=== PATIENT | male | born 1970 | race African-American/Black ===

== ENCOUNTER 2023-03-04 18:08 | Emergency (ER) | payer OTHER ==
[~2023-03-04] VITALS: Ht 182.9 cm; Wt 113.0 kg
[~2023-03-04 18:08] MED LIST: AMLO-257 PO; ASPI-556 PO; CHOL200016 PO; DIVA500T53 PO; LISI-894 PO; MAGN400T7 PO; OLAN10TA74 PO; SIMV-260 PO
[2023-03-04 19:44] VITALS: TEMP 98.1
[2023-03-04] MEDS ORDERED: CEPH-558 PO (20:27)
[2023-03-04 20:50] LABS: BASOPHILS % (AUTO) 0.3 % (0.0-2.0); HEMOGLOBIN 10.8 g/dL (13.5-17.5); LYMPHOCYTES % (AUTO) 25.4 % (22.0-44.0); MEAN CORPUSCULAR HEMOGLOBIN 29.7 pg (26.0-34.0); MEAN CORPUSCULAR HGB CONC 32.8 G/dL (31.0-37.0); MEAN CORPUSCULAR VOLUME 91 fL (80-100); MONOCYTES # (AUTO) 0.4 K/uL (0.1-1.0); MONOCYTES % (AUTO) 5.5 % (2.0-9.0); NEUTROPHILS # (AUTO) 5.4 K/uL (1.8-7.7); NEUTROPHILS % (AUTO) 66.8 % (40.0-70.0); PLATELET COUNT (AUTO) 262 K/uL (150-450); RED BLOOD CELL COUNT(AUTO) 3.65 MIL/uL (4.50-5.90); RED CELL DISTRIBUTION WIDTH 13.6 % (11.5-14.5)
[2023-03-04 20:57] LABS: ANION GAP 5 mmol/L (8-16); CALCIUM, TOTAL 8.3 mg/dL (8.8-10.5); CARBON DIOXIDE 28 mmol/L (22-29); CHLORIDE 106 mmol/L (98-107); CREATININE 1.59 mg/dL (0.60-1.30); GLOMERULAR FILTR. RATE CALC 55 mL/min (>60); GLUCOSE,RANDOM 305 mg/dL (70-110); POTASSIUM 4.5 mmol/L (3.5-5.1); SODIUM SERUM 139 mmol/L (136-145)
[2023-03-04 21:02] LABS: ALANINE AMINOTRANSFERASE 21 U/L (12-78); ALBUMIN 1.9 g/dL (3.4-5.0); ALKALINE PHOSPHATASE 189 U/L (46-116); ASPARTATE AMINOTRANSFERASE 19 U/L (15-37); BILIRUBIN,TOTAL 0.1 mg/dL (0.1-1.0); TOTAL PROTEIN, SERUM 5.5 g/dL (6.4-8.2)
[2023-03-04 21:05] LABS: AMPHET/METH SCREEN,URINE NEGATIVE (NEGATIVE); BARBITURATE SCREEN, URINE NEGATIVE (NEGATIVE); BENZODIAZEPINES SCREEN,URINE NEGATIVE (NEGATIVE); CANNABINOID SCREEN,URINE POSITIVE (NEGATIVE); COCAINE SCREEN,URINE NEGATIVE (NEGATIVE); METHADONE SCREEN, URINE NEGATIVE (NEGATIVE); OPIATE SCREEN,URINE NEGATIVE (NEGATIVE); PHENCYCLIDINE SCREEN,URINE NEGATIVE (NEGATIVE)
[2023-03-04 22:13] VITALS: BP 125/69; PULSE 98; RESP 18
[2023-03-05] MEDS ORDERED: PALI819S IM (13:30)
[2023-03-05] MEDS ORDERED: HYDR12.54 PO (13:30)
[2023-03-05] MEDS ORDERED: ATOR10TA69 PO (13:30)
[2023-03-05] MEDS ORDERED: AMLO2.5T29 PO (13:30)
== END 2023-03-04 22:15 | disposition short-term general hospital (02) ==
LOC: EMS 18:50
DX: S81.809A Unspecified open wound, unspecified lower leg, initial encounter (principal); F20.9 Schizophrenia, unspecified; I87.8 Other specified disorders of veins; L30.9 Dermatitis, unspecified; Z88.8 Allergy status to other drugs, medicaments and biological substances; X58.XXXA Exposure to other specified factors, initial encounter; Y93.89 Activity, other specified; Y92.89 Other specified places as the place of occurrence of the external cause; Y99.8 Other external cause status
CPT/HCPCS: 99285; 80053; 85025; 36415; 80307 ×2; G0480

== ENCOUNTER 2023-03-14 12:33 | Inpatient (IN) | payer OTHER ==
[~2023-03-14] VITALS: Ht 182.9 cm; Wt 122.8 kg
[~2023-03-14 12:33] MED LIST changes: -AMLO-257 PO; +AMLO2.5T29 PO; -ASPI-556 PO; +ATOR10TA69 PO; +CEPH-558 PO; -CHOL200016 PO; -DIVA500T53 PO; +HYDR12.54 PO; -LISI-894 PO; -MAGN400T7 PO; -OLAN10TA74 PO; +PALI819S IM; -SIMV-260 PO
[2023-03-14 15:15] LABS: BASOPHILS % (AUTO) 0.8 % (0.0-2.0); EOSINOPHILS % (AUTO) 2.9 % (1.0-6.0); HEMATOCRIT 31.8 % (41-53); HEMOGLOBIN 10.2 g/dL (13.5-17.5); LYMPHOCYTES # (AUTO) 0.9 K/uL (1.0-4.8); LYMPHOCYTES % (AUTO) 19.2 % (22.0-44.0); MEAN CORPUSCULAR HEMOGLOBIN 27.5 pg (26.0-34.0); MEAN CORPUSCULAR VOLUME 86 fL (80-100); MONOCYTES # (AUTO) 0.4 K/uL (0.1-1.0); MONOCYTES % (AUTO) 7.9 % (2.0-9.0); NEUTROPHILS # (AUTO) 3.2 K/uL (1.8-7.7); NEUTROPHILS % (AUTO) 69.2 % (40.0-70.0); PLATELET COUNT (AUTO) 365 K/uL (150-450); RED BLOOD CELL COUNT(AUTO) 3.71 MIL/uL (4.50-5.90); RED CELL DISTRIBUTION WIDTH 15.1 % (11.5-14.5)
[2023-03-14 15:27] LABS: ANION GAP 9 mmol/L (8-16); CALCIUM, TOTAL 9.1 mg/dL (8.8-10.5); CARBON DIOXIDE 29 mmol/L (22-29); CHLORIDE 100 mmol/L (98-107); CREATININE 0.61 mg/dL (0.60-1.30); GLOMERULAR FILTR. RATE CALC > 60 mL/min (>60); GLUCOSE,RANDOM 88 mg/dL (70-110); POTASSIUM 3.5 mmol/L (3.5-5.1); SODIUM SERUM 138 mmol/L (136-145)
[2023-03-14 15:32] LABS: ALANINE AMINOTRANSFERASE 14 U/L (12-78); ALBUMIN 3.1 g/dL (3.4-5.0); ALKALINE PHOSPHATASE 80 U/L (46-116); ASPARTATE AMINOTRANSFERASE 21 U/L (15-37); BILIRUBIN,TOTAL 0.5 mg/dL (0.1-1.0); TOTAL PROTEIN, SERUM 7.8 g/dL (6.4-8.2)
[2023-03-14 16:04] LABS: COVID AG,FIA SOURCE NASOPHARYNGEAL
[2023-03-14 18:28] LABS: APPEARANCE,URINE CLEAR (CLEAR); BILIRUBIN,URINE NEGATIVE (NEGATIVE); GLUCOSE, URINE (UA) NEGATIVE (NEGATIVE); KETONES,URINE NEGATIVE (NEGATIVE); LEUKOCYTE ESTERASE ,URINE NEGATIVE (NEGATIVE); NITRATE,URINE NEGATIVE (NEGATIVE); OCCULT BLOOD,URINE NEGATIVE (NEGATIVE); PH,URINE 5.5 (5.0-8.0); PROTEIN,URINE NEGATIVE (NEGATIVE); SPECIFIC GRAVITIY, URINE 1.009 (1.003-1.030); UROBILINOGEN,URINE <=1.0 mg/dL (<=1.0)
[2023-03-14 18:35] LABS: AMPHET/METH SCREEN,URINE NEGATIVE (NEGATIVE); BARBITURATE SCREEN, URINE NEGATIVE (NEGATIVE); BENZODIAZEPINES SCREEN,URINE NEGATIVE (NEGATIVE); CANNABINOID SCREEN,URINE NEGATIVE (NEGATIVE); COCAINE SCREEN,URINE NEGATIVE (NEGATIVE); METHADONE SCREEN, URINE NEGATIVE (NEGATIVE); OPIATE SCREEN,URINE NEGATIVE (NEGATIVE); PHENCYCLIDINE SCREEN,URINE NEGATIVE (NEGATIVE)
[2023-03-15 02:31] VITALS: BP 128/73; PULSE 78; RESP 20; TEMP 98.3; O2SAT 97
[2023-03-15 02:55] VITALS: BP 128/73; PULSE 78; RESP 20; TEMP 98.3
[2023-03-15] MEDS ORDERED: PETROLATUM,WHITE 28 GM JELLY TP PRN (07:00)
[2023-03-15] MEDS ORDERED: ONDANSETRON HCL 4 MG TABLET PO PRN (07:00)
[2023-03-15] MEDS ORDERED: MAG HYDROX/AL HYDROX/SIMETH ES 30 ML SUSPENSION UDCUP PO PRN (07:00)
[2023-03-15] MEDS ORDERED: CloNIDine HCL 0.1 MG TABLET PO PRN (07:00)
[2023-03-15] MEDS ORDERED: ALBUTEROL SULFATE HFA 90 MCG/PUFF 8 GM INHALER IH PRN (07:00)
[2023-03-15] MEDS ORDERED: GuaiFENesin/D-METHORPHAN [SUGAR-FREE] 200-20MG/10 ML SYRUP UDCUP PO PRN (07:00)
[2023-03-15] MEDS ORDERED: DOCUSATE SODIUM 100 MG CAPSULE PO PRN (07:00)
[2023-03-15] MEDS ORDERED: IBUPROFEN 400 MG TABLET PO PRN ×2 (07:00→23:15)
[2023-03-15] MEDS ORDERED: ACETAMINOPHEN 325 MG TABLET PO PRN (07:00)
[2023-03-15] MEDS ORDERED: LOPERAMIDE HCL 2 MG CAPSULE PO PRN (07:00)
[2023-03-15] MEDS ORDERED: MAGNESIUM HYDROXIDE SUSPENSION 30 ML UDCUP PO PRN (07:00)
[2023-03-15 07:18] VITALS: BP 128/97; PULSE 78; RESP 18; TEMP 98.3
[2023-03-15] MEDS: AmLODIPine BESYLATE 2.5 MG TABLET PO SCH (07:18)
[2023-03-15] MEDS: HALOPERIDOL 5 MG TABLET PO PRN ×2 (07:18→14:56)
[2023-03-15] MEDS: LORazepam 2 MG TABLET PO PRN ×2 (07:18→14:56)
[2023-03-15] MEDS: HYDROCHLOROTHIAZIDE 25 MG TABLET PO SCH (07:19)
[2023-03-15] MEDS: ATORVASTATIN CALCIUM 10 MG TABLET PO SCH (08:05)
[2023-03-15 08:18] VITALS: BP 132/89; PULSE 76; RESP 18; TEMP 98.2
[2023-03-15 08:22] VITALS: BP 116/70; PULSE 84; RESP 20; TEMP 98.9; O2SAT 100
[2023-03-15] MEDS: CIPROFLOXACIN HCL 0.3% 2.5 ML OPHTHALMIC SOLUTION OU SCH ×3 (08:23→18:44)
[2023-03-15] MEDS: OLANZapine 10 MG TABLET PO SCH (18:44)
[2023-03-15 20:31] VITALS: RESP 18
[2023-03-15] MEDS: DIVALPROEX SODIUM 500 MG ER TABLET PO SCH (21:04)
[2023-03-16] MEDS: OLANZapine 10 MG TABLET PO SCH ×2 (08:44→17:34)
[2023-03-16] MEDS: AmLODIPine BESYLATE 2.5 MG TABLET PO SCH (08:44)
[2023-03-16] MEDS: DIVALPROEX SODIUM 500 MG ER TABLET PO SCH ×2 (08:45→20:34)
[2023-03-16] MEDS: HYDROCHLOROTHIAZIDE 25 MG TABLET PO SCH (08:45)
[2023-03-16] MEDS: CIPROFLOXACIN HCL 0.3% 2.5 ML OPHTHALMIC SOLUTION OU SCH ×3 (08:46→17:33)
[2023-03-16] MEDS: ATORVASTATIN CALCIUM 10 MG TABLET PO SCH (08:46)
[2023-03-16 09:09] VITALS: BP 138/81; PULSE 88; RESP 18; TEMP 98.1; O2SAT 98
[2023-03-16 12:20] LABS: HEMOGLOBIN A1C 5.9 % (3.8-5.6)
[2023-03-16 12:26] LABS: THYROID STIMULATING HORMONE 1.13 uIU/mL (0.36-3.74)
[2023-03-16] MEDS: LORazepam 2 MG TABLET PO PRN (14:05)
[2023-03-16 20:47] VITALS: PULSE 95; RESP 18; TEMP 98.1; O2SAT 97
[2023-03-17] MEDS: OLANZapine 10 MG TABLET PO SCH ×2 (08:23→17:19)
[2023-03-17] MEDS: HYDROCHLOROTHIAZIDE 25 MG TABLET PO SCH (08:24)
[2023-03-17] MEDS: AmLODIPine BESYLATE 2.5 MG TABLET PO SCH (08:24)
[2023-03-17] MEDS: DIVALPROEX SODIUM 500 MG ER TABLET PO SCH ×2 (08:24→20:33)
[2023-03-17] MEDS: ATORVASTATIN CALCIUM 10 MG TABLET PO SCH (08:25)
[2023-03-17] MEDS: CIPROFLOXACIN HCL 0.3% 2.5 ML OPHTHALMIC SOLUTION OU SCH ×3 (08:25→17:21)
[2023-03-17 10:26] VITALS: BP 110/82; PULSE 81; RESP 17; TEMP 98; O2SAT 98
[2023-03-17 20:06] VITALS: BP 128/77; PULSE 86; RESP 18; TEMP 98.1; O2SAT 97
[2023-03-17] MEDS: ZOLPIDEM TARTRATE 10 MG TABLET PO PRN (23:14)
[2023-03-18] MEDS: LORazepam 2 MG TABLET PO PRN ×4 (02:41→22:33)
[2023-03-18] MEDS: HALOPERIDOL 5 MG TABLET PO PRN ×4 (02:41→22:33)
[2023-03-18 08:00] VITALS: BP 137/87; PULSE 87; RESP 18; TEMP 98
[2023-03-18 08:37] LABS: CHOL/HDL RATIO 2.5 (4.2-7.3)
[2023-03-18] MEDS: ATORVASTATIN CALCIUM 10 MG TABLET PO SCH (10:22)
[2023-03-18] MEDS: OLANZapine 10 MG TABLET PO SCH ×2 (10:22→16:27)
[2023-03-18] MEDS: AmLODIPine BESYLATE 2.5 MG TABLET PO SCH (10:22)
[2023-03-18] MEDS: DIVALPROEX SODIUM 500 MG ER TABLET PO SCH ×2 (10:22→20:41)
[2023-03-18] MEDS: HYDROCHLOROTHIAZIDE 25 MG TABLET PO SCH (10:22)
[2023-03-18] MEDS: BACITRACIN 28 GM OINTMENT TP SCH ×2 (10:23→18:03)
[2023-03-18] MEDS: CIPROFLOXACIN HCL 0.3% 2.5 ML OPHTHALMIC SOLUTION OU SCH ×3 (10:23→16:27)
[2023-03-18 20:57] VITALS: BP 149/84; PULSE 88; RESP 18; TEMP 97.7; O2SAT 99
[2023-03-19] MEDS: CIPROFLOXACIN HCL 0.3% 2.5 ML OPHTHALMIC SOLUTION OU SCH ×3 (08:16→17:59)
[2023-03-19] MEDS: ATORVASTATIN CALCIUM 10 MG TABLET PO SCH (08:16)
[2023-03-19] MEDS: DIVALPROEX SODIUM 500 MG ER TABLET PO SCH ×2 (08:16→20:38)
[2023-03-19] MEDS: AmLODIPine BESYLATE 2.5 MG TABLET PO SCH (08:17)
[2023-03-19] MEDS: HYDROCHLOROTHIAZIDE 25 MG TABLET PO SCH (08:17)
[2023-03-19] MEDS: OLANZapine 10 MG TABLET PO SCH ×2 (08:17→20:37)
[2023-03-19] MEDS: BACITRACIN 28 GM OINTMENT TP SCH ×2 (08:17→17:59)
[2023-03-19] MEDS: HALOPERIDOL 5 MG TABLET PO PRN ×2 (08:18→21:22)
[2023-03-19] MEDS: LORazepam 2 MG TABLET PO PRN ×2 (08:18→21:22)
[2023-03-19 08:47] VITALS: BP 161/89; PULSE 101; RESP 18; TEMP 97.1; O2SAT 95
[2023-03-19 20:40] VITALS: BP 142/85; PULSE 95; RESP 20; TEMP 98; O2SAT 97
[2023-03-20 08:10] VITALS: BP 123/75; PULSE 95; RESP 18; TEMP 98.3; O2SAT 99
[2023-03-20] MEDS: AmLODIPine BESYLATE 2.5 MG TABLET PO SCH (08:12)
[2023-03-20] MEDS: OLANZapine 10 MG TABLET PO SCH ×2 (08:12→20:21)
[2023-03-20] MEDS: ATORVASTATIN CALCIUM 10 MG TABLET PO SCH (08:12)
[2023-03-20] MEDS: HYDROCHLOROTHIAZIDE 25 MG TABLET PO SCH (08:12)
[2023-03-20] MEDS: CIPROFLOXACIN HCL 0.3% 2.5 ML OPHTHALMIC SOLUTION OU SCH ×3 (08:14→16:51)
[2023-03-20] MEDS: DIVALPROEX SODIUM 500 MG ER TABLET PO SCH ×2 (08:14→20:22)
[2023-03-20] MEDS: BACITRACIN 28 GM OINTMENT TP SCH ×2 (08:17→16:51)
[2023-03-20] MEDS: HALOPERIDOL 5 MG TABLET PO PRN (19:07)
[2023-03-20] MEDS: LORazepam 2 MG TABLET PO PRN (19:07)
[2023-03-20 20:48] VITALS: BP 121/86; PULSE 112; RESP 18; TEMP 97.8; O2SAT 98
[2023-03-20] MEDS: ZOLPIDEM TARTRATE 10 MG TABLET PO PRN (22:39)
[2023-03-21] MEDS: DIVALPROEX SODIUM 500 MG ER TABLET PO SCH ×2 (08:07→20:16)
[2023-03-21] MEDS: HYDROCHLOROTHIAZIDE 25 MG TABLET PO SCH (08:08)
[2023-03-21] MEDS: AmLODIPine BESYLATE 2.5 MG TABLET PO SCH (08:08)
[2023-03-21] MEDS: OLANZapine 10 MG TABLET PO SCH ×2 (08:08→20:16)
[2023-03-21] MEDS: ATORVASTATIN CALCIUM 10 MG TABLET PO SCH (08:08)
[2023-03-21] MEDS: CIPROFLOXACIN HCL 0.3% 2.5 ML OPHTHALMIC SOLUTION OU SCH ×3 (08:08→17:08)
[2023-03-21 08:20] VITALS: BP 131/93; PULSE 104; RESP 18; TEMP 97.6; O2SAT 100
[2023-03-21] MEDS: BACITRACIN 28 GM OINTMENT TP SCH ×2 (12:28→17:10)
[2023-03-21] MEDS: HALOPERIDOL 5 MG TABLET PO PRN (19:10)
[2023-03-21] MEDS: LORazepam 2 MG TABLET PO PRN (19:10)
[2023-03-21 20:34] VITALS: BP 150/71; PULSE 87; RESP 18; TEMP 97.2; O2SAT 99
[2023-03-21] MEDS: ZOLPIDEM TARTRATE 10 MG TABLET PO PRN (23:21)
[2023-03-22 08:11] VITALS: BP 113/63; PULSE 98; RESP 18; TEMP 98; O2SAT 98
[2023-03-22] MEDS: OLANZapine 10 MG TABLET PO SCH ×2 (08:41→21:08)
[2023-03-22] MEDS: HYDROCHLOROTHIAZIDE 25 MG TABLET PO SCH (08:41)
[2023-03-22] MEDS: DIVALPROEX SODIUM 500 MG ER TABLET PO SCH ×2 (08:41→21:08)
[2023-03-22] MEDS: BACITRACIN 28 GM OINTMENT TP SCH ×2 (08:42→16:25)
[2023-03-22] MEDS: AmLODIPine BESYLATE 2.5 MG TABLET PO SCH (08:42)
[2023-03-22] MEDS: ATORVASTATIN CALCIUM 10 MG TABLET PO SCH (08:42)
[2023-03-22] MEDS: CIPROFLOXACIN HCL 0.3% 2.5 ML OPHTHALMIC SOLUTION OU SCH ×3 (08:43→16:25)
[2023-03-22 21:27] VITALS: BP 138/99; PULSE 96; RESP 18; TEMP 97.4; O2SAT 98
[2023-03-23] MEDS: ZOLPIDEM TARTRATE 10 MG TABLET PO PRN ×2 (00:59→21:11)
[2023-03-23 08:10] VITALS: BP 154/99; PULSE 103; RESP 16; TEMP 96.7; O2SAT 99
[2023-03-23] MEDS: OLANZapine 10 MG TABLET PO SCH ×2 (08:15→21:10)
[2023-03-23] MEDS: DIVALPROEX SODIUM 500 MG ER TABLET PO SCH ×2 (08:15→21:10)
[2023-03-23] MEDS: AmLODIPine BESYLATE 2.5 MG TABLET PO SCH (08:15)
[2023-03-23] MEDS: HYDROCHLOROTHIAZIDE 25 MG TABLET PO SCH (08:15)
[2023-03-23] MEDS: ATORVASTATIN CALCIUM 10 MG TABLET PO SCH (08:16)
[2023-03-23] MEDS: BACITRACIN 28 GM OINTMENT TP SCH ×2 (08:19→16:35)
[2023-03-23] MEDS: CIPROFLOXACIN HCL 0.3% 2.5 ML OPHTHALMIC SOLUTION OU SCH ×3 (08:19→16:35)
[2023-03-23] MEDS: LORazepam 2 MG TABLET PO PRN (19:45)
[2023-03-23 21:21] VITALS: BP 132/82; PULSE 96; RESP 18; TEMP 97.6; O2SAT 99
[2023-03-24] MEDS: AmLODIPine BESYLATE 2.5 MG TABLET PO SCH (07:57)
[2023-03-24] MEDS: DIVALPROEX SODIUM 500 MG ER TABLET PO SCH ×2 (07:57→21:14)
[2023-03-24] MEDS: HYDROCHLOROTHIAZIDE 25 MG TABLET PO SCH (07:57)
[2023-03-24] MEDS: ATORVASTATIN CALCIUM 10 MG TABLET PO SCH (07:57)
[2023-03-24] MEDS: OLANZapine 10 MG TABLET PO SCH ×2 (07:57→21:14)
[2023-03-24] MEDS: BACITRACIN 28 GM OINTMENT TP SCH ×2 (07:58→17:21)
[2023-03-24] MEDS: CIPROFLOXACIN HCL 0.3% 2.5 ML OPHTHALMIC SOLUTION OU SCH ×3 (07:58→17:21)
[2023-03-24 08:31] VITALS: BP 110/70; PULSE 98; RESP 17; TEMP 97.5; O2SAT 99
[2023-03-24] MEDS: LORazepam 2 MG TABLET PO PRN (19:30)
[2023-03-24 20:35] VITALS: BP 119/76; PULSE 101; RESP 18; TEMP 97.9; O2SAT 98
[2023-03-24] MEDS: ZOLPIDEM TARTRATE 10 MG TABLET PO PRN (21:14)
[2023-03-25] MEDS: AmLODIPine BESYLATE 2.5 MG TABLET PO SCH (07:55)
[2023-03-25] MEDS: ATORVASTATIN CALCIUM 10 MG TABLET PO SCH (07:55)
[2023-03-25] MEDS: OLANZapine 10 MG TABLET PO SCH ×2 (07:55→20:19)
[2023-03-25] MEDS: HYDROCHLOROTHIAZIDE 25 MG TABLET PO SCH (07:56)
[2023-03-25 08:12] VITALS: BP 124/73; PULSE 95; RESP 18; TEMP 97.4; O2SAT 100
[2023-03-25] MEDS: DIVALPROEX SODIUM 500 MG ER TABLET PO SCH ×2 (09:00→20:19)
[2023-03-25] MEDS: BACITRACIN 28 GM OINTMENT TP SCH ×2 (12:16→17:10)
[2023-03-25] MEDS: LORazepam 2 MG TABLET PO PRN ×2 (15:39→20:47)
[2023-03-25 20:38] VITALS: BP 127/75; PULSE 91; RESP 18; TEMP 97.7
[2023-03-25] MEDS: ZOLPIDEM TARTRATE 10 MG TABLET PO PRN (20:47)
[2023-03-26] MEDS: ATORVASTATIN CALCIUM 10 MG TABLET PO SCH (08:07)
[2023-03-26] MEDS: DIVALPROEX SODIUM 500 MG ER TABLET PO SCH ×2 (08:08→21:15)
[2023-03-26] MEDS: HYDROCHLOROTHIAZIDE 25 MG TABLET PO SCH (08:08)
[2023-03-26] MEDS: AmLODIPine BESYLATE 2.5 MG TABLET PO SCH (08:08)
[2023-03-26] MEDS: OLANZapine 10 MG TABLET PO SCH ×2 (08:09→21:15)
[2023-03-26 08:50] VITALS: BP 144/88; PULSE 101; RESP 18; TEMP 97.6; O2SAT 98
[2023-03-26] MEDS: BACITRACIN 28 GM OINTMENT TP SCH ×2 (09:10→16:10)
[2023-03-26] MEDS: NICOTINE 14 MG/24 HOUR PATCH TD PRN (12:34)
[2023-03-26] MEDS: HALOPERIDOL 5 MG TABLET PO PRN (19:45)
[2023-03-26] MEDS: LORazepam 2 MG TABLET PO PRN (19:45)
[2023-03-26] MEDS: ZOLPIDEM TARTRATE 10 MG TABLET PO PRN (21:15)
[2023-03-26 21:24] VITALS: BP 153/89; PULSE 101; RESP 18; TEMP 97.8; O2SAT 96
[2023-03-27] MEDS: BACITRACIN 28 GM OINTMENT TP SCH ×2 (08:08→16:11)
[2023-03-27] MEDS: ATORVASTATIN CALCIUM 10 MG TABLET PO SCH (08:08)
[2023-03-27] MEDS: AmLODIPine BESYLATE 2.5 MG TABLET PO SCH (08:09)
[2023-03-27] MEDS: OLANZapine 10 MG TABLET PO SCH ×2 (08:09→20:44)
[2023-03-27] MEDS: HYDROCHLOROTHIAZIDE 25 MG TABLET PO SCH (08:09)
[2023-03-27 08:11] VITALS: BP 136/78; PULSE 105; RESP 17; TEMP 98.2; O2SAT 97
[2023-03-27] MEDS: DIVALPROEX SODIUM 500 MG ER TABLET PO SCH ×2 (08:12→20:44)
[2023-03-27 20:54] VITALS: RESP 18
[2023-03-28 08:12] VITALS: BP 150/98; PULSE 109; RESP 17; TEMP 97.8; O2SAT 98
[2023-03-28] MEDS: OLANZapine 10 MG TABLET PO SCH ×2 (08:12→20:38)
[2023-03-28] MEDS: HYDROCHLOROTHIAZIDE 25 MG TABLET PO SCH (08:12)
[2023-03-28] MEDS: AmLODIPine BESYLATE 2.5 MG TABLET PO SCH (08:12)
[2023-03-28] MEDS: DIVALPROEX SODIUM 500 MG ER TABLET PO SCH ×2 (08:12→20:38)
[2023-03-28] MEDS: HALOPERIDOL 5 MG TABLET PO PRN (08:12)
[2023-03-28] MEDS: BACITRACIN 28 GM OINTMENT TP SCH ×2 (08:13→16:37)
[2023-03-28] MEDS: ATORVASTATIN CALCIUM 10 MG TABLET PO SCH (08:13)
[2023-03-28] MEDS: NICOTINE 14 MG/24 HOUR PATCH TD PRN (18:06)
[2023-03-28 20:32] VITALS: BP 108/60; PULSE 100; RESP 18; TEMP 98.2; O2SAT 97
[2023-03-29 08:06] VITALS: BP 120/73; PULSE 100; RESP 18; TEMP 98.5; O2SAT 98
[2023-03-29] MEDS: AmLODIPine BESYLATE 2.5 MG TABLET PO SCH (09:32)
[2023-03-29] MEDS: OLANZapine 10 MG TABLET PO SCH ×2 (09:32→20:52)
[2023-03-29] MEDS: DIVALPROEX SODIUM 500 MG ER TABLET PO SCH ×2 (09:32→20:51)
[2023-03-29] MEDS: ATORVASTATIN CALCIUM 10 MG TABLET PO SCH (09:32)
[2023-03-29] MEDS: HYDROCHLOROTHIAZIDE 25 MG TABLET PO SCH (09:32)
[2023-03-29] MEDS: BACITRACIN 28 GM OINTMENT TP SCH ×2 (09:33→16:48)
[2023-03-29] MEDS: HALOPERIDOL 5 MG TABLET PO PRN (10:15)
[2023-03-29] MEDS: LORazepam 2 MG TABLET PO PRN (10:15)
[2023-03-29 22:10] VITALS: RESP 18
[2023-03-30] MEDS: AmLODIPine BESYLATE 2.5 MG TABLET PO SCH (08:00)
[2023-03-30] MEDS: ATORVASTATIN CALCIUM 10 MG TABLET PO SCH (08:00)
[2023-03-30] MEDS: DIVALPROEX SODIUM 500 MG ER TABLET PO SCH ×2 (08:00→21:01)
[2023-03-30] MEDS: OLANZapine 10 MG TABLET PO SCH ×2 (08:01→21:01)
[2023-03-30] MEDS: HYDROCHLOROTHIAZIDE 25 MG TABLET PO SCH (08:01)
[2023-03-30] MEDS: BACITRACIN 28 GM OINTMENT TP SCH ×2 (08:04→17:03)
[2023-03-30] MEDS: LORazepam 2 MG TABLET PO PRN ×3 (08:27→23:17)
[2023-03-30] MEDS: HALOPERIDOL 5 MG TABLET PO PRN ×3 (08:27→23:17)
[2023-03-30 09:04] VITALS: BP 126/76; PULSE 77; RESP 18; TEMP 98.9; O2SAT 97
[2023-03-30 21:37] VITALS: BP 119/78; PULSE 88; RESP 18; TEMP 97.9; O2SAT 97
[2023-03-31] MEDS: AmLODIPine BESYLATE 2.5 MG TABLET PO SCH (08:08)
[2023-03-31] MEDS: ATORVASTATIN CALCIUM 10 MG TABLET PO SCH (08:08)
[2023-03-31] MEDS: OLANZapine 10 MG TABLET PO SCH ×2 (08:08→20:48)
[2023-03-31] MEDS: LORazepam 2 MG TABLET PO PRN (08:08)
[2023-03-31] MEDS: BACITRACIN 28 GM OINTMENT TP SCH ×2 (08:08→16:14)
[2023-03-31] MEDS: HYDROCHLOROTHIAZIDE 25 MG TABLET PO SCH (08:09)
[2023-03-31] MEDS: DIVALPROEX SODIUM 500 MG ER TABLET PO SCH ×2 (08:09→20:49)
[2023-03-31 08:57] VITALS: BP 144/86; PULSE 110; RESP 18; TEMP 97; O2SAT 96
[2023-03-31 22:00] VITALS: BP 135/78; PULSE 92; RESP 18; TEMP 97.8; O2SAT 97
[2023-04-01] MEDS: ATORVASTATIN CALCIUM 10 MG TABLET PO SCH (07:26)
[2023-04-01] MEDS: DIVALPROEX SODIUM 500 MG ER TABLET PO SCH ×2 (07:28→20:44)
[2023-04-01] MEDS: BACITRACIN 28 GM OINTMENT TP SCH ×2 (07:28→17:59)
[2023-04-01] MEDS: HYDROCHLOROTHIAZIDE 25 MG TABLET PO SCH (07:28)
[2023-04-01] MEDS: OLANZapine 10 MG TABLET PO SCH ×2 (07:28→20:44)
[2023-04-01] MEDS: AmLODIPine BESYLATE 2.5 MG TABLET PO SCH (07:28)
[2023-04-01 08:56] VITALS: BP 158/104; PULSE 92; RESP 19; TEMP 97.2; O2SAT 92
[2023-04-01] MEDS: NICOTINE 14 MG/24 HOUR PATCH TD PRN (16:31)
[2023-04-01] MEDS: HALOPERIDOL 5 MG TABLET PO PRN (17:58)
[2023-04-01 22:24] VITALS: BP 138/82; PULSE 104; RESP 20; TEMP 97.7; O2SAT 98
[2023-04-02] MEDS: DIVALPROEX SODIUM 500 MG ER TABLET PO SCH ×2 (08:06→20:35)
[2023-04-02] MEDS: OLANZapine 10 MG TABLET PO SCH ×2 (08:06→20:35)
[2023-04-02] MEDS: ATORVASTATIN CALCIUM 10 MG TABLET PO SCH (08:06)
[2023-04-02] MEDS: BACITRACIN 28 GM OINTMENT TP SCH ×2 (08:06→16:52)
[2023-04-02] MEDS: AmLODIPine BESYLATE 2.5 MG TABLET PO SCH (08:06)
[2023-04-02] MEDS: HYDROCHLOROTHIAZIDE 25 MG TABLET PO SCH (08:07)
[2023-04-02 08:30] VITALS: BP 110/74; PULSE 99; RESP 18; TEMP 98.1; O2SAT 98
[2023-04-02] MEDS: NICOTINE 14 MG/24 HOUR PATCH TD PRN (09:10)
[2023-04-02 22:02] VITALS: RESP 18
[2023-04-03] MEDS: ATORVASTATIN CALCIUM 10 MG TABLET PO SCH (07:30)
[2023-04-03] MEDS: AmLODIPine BESYLATE 2.5 MG TABLET PO SCH (07:30)
[2023-04-03] MEDS: HYDROCHLOROTHIAZIDE 25 MG TABLET PO SCH (07:30)
[2023-04-03] MEDS: DIVALPROEX SODIUM 500 MG ER TABLET PO SCH ×2 (07:30→20:37)
[2023-04-03] MEDS: OLANZapine 10 MG TABLET PO SCH ×2 (07:30→20:37)
[2023-04-03] MEDS: BACITRACIN 28 GM OINTMENT TP SCH ×2 (07:31→17:56)
[2023-04-03 08:12] VITALS: BP 125/86; PULSE 91; RESP 18; TEMP 97.7; O2SAT 96
[2023-04-03] MEDS: NICOTINE 14 MG/24 HOUR PATCH TD PRN (08:19)
[2023-04-03 21:59] VITALS: BP 145/80; PULSE 96; RESP 18; TEMP 97.2; O2SAT 97
[2023-04-04] MEDS: HYDROCHLOROTHIAZIDE 25 MG TABLET PO SCH (08:01)
[2023-04-04] MEDS: DIVALPROEX SODIUM 500 MG ER TABLET PO SCH ×2 (08:01→20:15)
[2023-04-04] MEDS: ATORVASTATIN CALCIUM 10 MG TABLET PO SCH (08:01)
[2023-04-04] MEDS: AmLODIPine BESYLATE 2.5 MG TABLET PO SCH (08:01)
[2023-04-04] MEDS: BACITRACIN 28 GM OINTMENT TP SCH ×2 (08:01→17:15)
[2023-04-04] MEDS: OLANZapine 10 MG TABLET PO SCH ×2 (08:02→20:15)
[2023-04-04 08:07] VITALS: BP 126/86; PULSE 94; RESP 18; TEMP 97.8; O2SAT 97
[2023-04-04] MEDS ORDERED: LORazepam 1 MG TABLET PO PRN (16:30)
[2023-04-04 20:45] VITALS: BP 149/97; PULSE 96; RESP 19; TEMP 97.6; O2SAT 96
[2023-04-05] MEDS: OLANZapine 10 MG TABLET PO SCH ×2 (07:57→20:17)
[2023-04-05] MEDS: AmLODIPine BESYLATE 2.5 MG TABLET PO SCH (07:58)
[2023-04-05] MEDS: DIVALPROEX SODIUM 500 MG ER TABLET PO SCH ×2 (07:58→20:18)
[2023-04-05] MEDS: HYDROCHLOROTHIAZIDE 25 MG TABLET PO SCH (07:58)
[2023-04-05] MEDS: ATORVASTATIN CALCIUM 10 MG TABLET PO SCH (07:59)
[2023-04-05 08:14] VITALS: BP 113/78; PULSE 90; RESP 18; TEMP 97.6; O2SAT 95
[2023-04-05] MEDS: BACITRACIN 28 GM OINTMENT TP SCH ×2 (11:52→16:45)
[2023-04-05 20:52] VITALS: BP 130/85; PULSE 85; RESP 18; TEMP 97.8; O2SAT 96
[2023-04-06] MEDS: DIVALPROEX SODIUM 500 MG ER TABLET PO SCH ×2 (08:01→20:34)
[2023-04-06] MEDS: OLANZapine 10 MG TABLET PO SCH ×2 (08:01→20:34)
[2023-04-06] MEDS: AmLODIPine BESYLATE 2.5 MG TABLET PO SCH (08:01)
[2023-04-06] MEDS: BACITRACIN 28 GM OINTMENT TP SCH ×2 (08:02→17:25)
[2023-04-06] MEDS: HYDROCHLOROTHIAZIDE 25 MG TABLET PO SCH (08:02)
[2023-04-06] MEDS: ATORVASTATIN CALCIUM 10 MG TABLET PO SCH (08:02)
[2023-04-06] MEDS: NICOTINE 14 MG/24 HOUR PATCH TD PRN (08:10)
[2023-04-06 09:00] VITALS: BP 149/94; PULSE 103; RESP 18; TEMP 97.5
[2023-04-06 20:46] VITALS: BP 150/90; PULSE 97; RESP 18; TEMP 97.8; O2SAT 97
[2023-04-07] MEDS: HYDROCHLOROTHIAZIDE 25 MG TABLET PO SCH (08:16)
[2023-04-07] MEDS: ATORVASTATIN CALCIUM 10 MG TABLET PO SCH (08:16)
[2023-04-07] MEDS: AmLODIPine BESYLATE 2.5 MG TABLET PO SCH (08:16)
[2023-04-07] MEDS: MULTIVITAMINS, THERAPEUTIC TABLET PO SCH (08:16)
[2023-04-07] MEDS: DIVALPROEX SODIUM 500 MG ER TABLET PO SCH ×2 (08:16→21:18)
[2023-04-07] MEDS: OLANZapine 10 MG TABLET PO SCH ×2 (08:22→21:18)
[2023-04-07] MEDS: BACITRACIN 28 GM OINTMENT TP SCH ×2 (08:23→16:59)
[2023-04-07] MEDS: NICOTINE 14 MG/24 HOUR PATCH TD PRN (08:33)
[2023-04-07 08:49] VITALS: BP 133/77; PULSE 91; RESP 19; TEMP 97.2; O2SAT 98
[2023-04-07 21:20] VITALS: BP 145/80; PULSE 95; RESP 20; TEMP 97.8; O2SAT 97
[2023-04-08 08:08] VITALS: BP 141/81; PULSE 91; RESP 16; TEMP 97.2; O2SAT 95
[2023-04-08] MEDS: MULTIVITAMINS, THERAPEUTIC TABLET PO SCH (08:15)
[2023-04-08] MEDS: DIVALPROEX SODIUM 500 MG ER TABLET PO SCH ×2 (08:15→20:21)
[2023-04-08] MEDS: ATORVASTATIN CALCIUM 10 MG TABLET PO SCH (08:17)
[2023-04-08] MEDS: OLANZapine 10 MG TABLET PO SCH ×2 (08:17→20:21)
[2023-04-08] MEDS: HYDROCHLOROTHIAZIDE 25 MG TABLET PO SCH (08:17)
[2023-04-08] MEDS: AmLODIPine BESYLATE 2.5 MG TABLET PO SCH (08:17)
[2023-04-08] MEDS: BACITRACIN 28 GM OINTMENT TP SCH ×2 (08:18→17:10)
[2023-04-08] MEDS: NICOTINE 14 MG/24 HOUR PATCH TD PRN (08:24)
[2023-04-08 20:04] VITALS: BP 112/73; PULSE 99; RESP 18; TEMP 97.3; O2SAT 97
[2023-04-09] MEDS: OLANZapine 10 MG TABLET PO SCH ×2 (08:34→20:15)
[2023-04-09] MEDS: AmLODIPine BESYLATE 2.5 MG TABLET PO SCH (08:35)
[2023-04-09] MEDS: DIVALPROEX SODIUM 500 MG ER TABLET PO SCH ×2 (08:35→20:15)
[2023-04-09] MEDS: MULTIVITAMINS, THERAPEUTIC TABLET PO SCH (08:35)
[2023-04-09] MEDS: ATORVASTATIN CALCIUM 10 MG TABLET PO SCH (08:35)
[2023-04-09] MEDS: HYDROCHLOROTHIAZIDE 25 MG TABLET PO SCH (08:35)
[2023-04-09] MEDS: BACITRACIN 28 GM OINTMENT TP SCH ×2 (08:36→17:57)
[2023-04-09 09:00] VITALS: PULSE 98; TEMP 97.1
[2023-04-09] MEDS: NICOTINE 14 MG/24 HOUR PATCH TD PRN (09:41)
[2023-04-09 20:57] VITALS: BP 150/79; PULSE 93; RESP 18; TEMP 97.8; O2SAT 97
[2023-04-09] MEDS: HALOPERIDOL 5 MG TABLET PO PRN (21:28)
[2023-04-10] MEDS: OLANZapine 10 MG TABLET PO SCH ×2 (09:05→20:18)
[2023-04-10] MEDS: DIVALPROEX SODIUM 500 MG ER TABLET PO SCH ×2 (09:05→20:18)
[2023-04-10] MEDS: ATORVASTATIN CALCIUM 10 MG TABLET PO SCH (09:05)
[2023-04-10] MEDS: HYDROCHLOROTHIAZIDE 25 MG TABLET PO SCH (09:06)
[2023-04-10] MEDS: AmLODIPine BESYLATE 2.5 MG TABLET PO SCH (09:06)
[2023-04-10] MEDS: MULTIVITAMINS, THERAPEUTIC TABLET PO SCH (09:07)
[2023-04-10] MEDS: NICOTINE 14 MG/24 HOUR PATCH TD PRN (09:34)
[2023-04-10 09:53] VITALS: BP 138/75; PULSE 97; RESP 16; TEMP 98.7; O2SAT 96
[2023-04-10] MEDS: BACITRACIN 28 GM OINTMENT TP SCH ×2 (13:21→17:15)
[2023-04-10 20:14] VITALS: RESP 18
[2023-04-11 08:08] VITALS: BP 160/95; PULSE 110; RESP 18; TEMP 97.6; O2SAT 97
[2023-04-11] MEDS: HYDROCHLOROTHIAZIDE 25 MG TABLET PO SCH (08:23)
[2023-04-11] MEDS: DIVALPROEX SODIUM 500 MG ER TABLET PO SCH ×2 (08:23→20:16)
[2023-04-11] MEDS: AmLODIPine BESYLATE 2.5 MG TABLET PO SCH (08:23)
[2023-04-11] MEDS: OLANZapine 10 MG TABLET PO SCH ×2 (08:24→20:17)
[2023-04-11] MEDS: MULTIVITAMINS, THERAPEUTIC TABLET PO SCH (08:24)
[2023-04-11] MEDS: NICOTINE 14 MG/24 HOUR PATCH TD PRN (08:28)
[2023-04-11] MEDS: ATORVASTATIN CALCIUM 10 MG TABLET PO SCH (09:00)
[2023-04-11] MEDS: BACITRACIN 28 GM OINTMENT TP SCH ×2 (12:31→17:22)
[2023-04-11 20:34] VITALS: BP 145/83; PULSE 91; RESP 18; TEMP 97.7
[2023-04-12 08:08] VITALS: BP 119/70; PULSE 105; RESP 18; TEMP 98; O2SAT 97
[2023-04-12] MEDS: DIVALPROEX SODIUM 500 MG ER TABLET PO SCH ×2 (08:21→20:34)
[2023-04-12] MEDS: OLANZapine 10 MG TABLET PO SCH ×2 (08:21→20:33)
[2023-04-12] MEDS: AmLODIPine BESYLATE 2.5 MG TABLET PO SCH (08:21)
[2023-04-12] MEDS: MULTIVITAMINS, THERAPEUTIC TABLET PO SCH (08:21)
[2023-04-12] MEDS: NICOTINE 14 MG/24 HOUR PATCH TD PRN (08:22)
[2023-04-12] MEDS: HYDROCHLOROTHIAZIDE 25 MG TABLET PO SCH (08:22)
[2023-04-12] MEDS: ATORVASTATIN CALCIUM 10 MG TABLET PO SCH (08:22)
[2023-04-12] MEDS: BACITRACIN 28 GM OINTMENT TP SCH ×2 (12:28→17:27)
[2023-04-13 08:09] VITALS: BP 125/71; PULSE 80; RESP 19; TEMP 97.3; O2SAT 97
[2023-04-13] MEDS: BACITRACIN 28 GM OINTMENT TP SCH ×2 (08:11→16:06)
[2023-04-13] MEDS: DIVALPROEX SODIUM 500 MG ER TABLET PO SCH ×2 (08:11→20:52)
[2023-04-13] MEDS: MULTIVITAMINS, THERAPEUTIC TABLET PO SCH (08:11)
[2023-04-13] MEDS: AmLODIPine BESYLATE 2.5 MG TABLET PO SCH (08:11)
[2023-04-13] MEDS: HYDROCHLOROTHIAZIDE 25 MG TABLET PO SCH (08:11)
[2023-04-13] MEDS: OLANZapine 10 MG TABLET PO SCH ×2 (08:11→20:52)
[2023-04-13] MEDS: ATORVASTATIN CALCIUM 10 MG TABLET PO SCH (08:11)
[2023-04-13] MEDS: NICOTINE 14 MG/24 HOUR PATCH TD PRN (16:00)
[2023-04-13] MEDS: LORazepam 2 MG TABLET PO PRN (19:45)
[2023-04-13 20:45] VITALS: BP 138/86; PULSE 96; RESP 16; TEMP 97.9; O2SAT 97
[2023-04-13] MEDS: ZOLPIDEM TARTRATE 10 MG TABLET PO PRN (20:52)
[2023-04-14] MEDS: OLANZapine 10 MG TABLET PO SCH ×2 (08:04→21:17)
[2023-04-14] MEDS: LORazepam 2 MG TABLET PO PRN ×2 (08:04→19:30)
[2023-04-14] MEDS: ATORVASTATIN CALCIUM 10 MG TABLET PO SCH (08:04)
[2023-04-14] MEDS: HYDROCHLOROTHIAZIDE 25 MG TABLET PO SCH (08:04)
[2023-04-14] MEDS: MULTIVITAMINS, THERAPEUTIC TABLET PO SCH (08:05)
[2023-04-14] MEDS: DIVALPROEX SODIUM 500 MG ER TABLET PO SCH ×2 (08:05→21:16)
[2023-04-14] MEDS: HALOPERIDOL 5 MG TABLET PO PRN ×2 (08:06→19:30)
[2023-04-14] MEDS: AmLODIPine BESYLATE 2.5 MG TABLET PO SCH (08:06)
[2023-04-14 08:44] VITALS: BP 116/62; PULSE 84; RESP 18; TEMP 97.8; O2SAT 99
[2023-04-14] MEDS: BACITRACIN 28 GM OINTMENT TP SCH ×2 (09:23→16:17)
[2023-04-14 20:25] VITALS: BP 132/66; PULSE 88; RESP 18; TEMP 97.9; O2SAT 99
[2023-04-14] MEDS: ZOLPIDEM TARTRATE 10 MG TABLET PO PRN (21:17)
[2023-04-15 08:02] VITALS: BP 155/96; PULSE 99; RESP 18; TEMP 97; O2SAT 98
[2023-04-15] MEDS: OLANZapine 10 MG TABLET PO SCH ×2 (08:08→20:56)
[2023-04-15] MEDS: DIVALPROEX SODIUM 500 MG ER TABLET PO SCH ×2 (08:08→20:56)
[2023-04-15] MEDS: AmLODIPine BESYLATE 2.5 MG TABLET PO SCH (08:08)
[2023-04-15] MEDS: ATORVASTATIN CALCIUM 10 MG TABLET PO SCH (08:08)
[2023-04-15] MEDS: MULTIVITAMINS, THERAPEUTIC TABLET PO SCH (08:08)
[2023-04-15] MEDS: HYDROCHLOROTHIAZIDE 25 MG TABLET PO SCH (08:08)
[2023-04-15] MEDS: BACITRACIN 28 GM OINTMENT TP SCH ×2 (08:10→16:45)
[2023-04-15] MEDS: NICOTINE 14 MG/24 HOUR PATCH TD PRN (08:36)
[2023-04-15] MEDS: LORazepam 2 MG TABLET PO PRN (19:30)
[2023-04-15] MEDS: HALOPERIDOL 5 MG TABLET PO PRN (19:31)
[2023-04-15] MEDS: ZOLPIDEM TARTRATE 10 MG TABLET PO PRN (20:56)
[2023-04-15 22:28] VITALS: BP 112/68; PULSE 84; RESP 18; TEMP 97.5; O2SAT 98
[2023-04-16] MEDS: AmLODIPine BESYLATE 2.5 MG TABLET PO SCH (08:19)
[2023-04-16] MEDS: MULTIVITAMINS, THERAPEUTIC TABLET PO SCH (08:19)
[2023-04-16] MEDS: DIVALPROEX SODIUM 500 MG ER TABLET PO SCH ×2 (08:19→20:57)
[2023-04-16] MEDS: ATORVASTATIN CALCIUM 10 MG TABLET PO SCH (08:19)
[2023-04-16] MEDS: OLANZapine 10 MG TABLET PO SCH ×2 (08:19→20:58)
[2023-04-16] MEDS: HYDROCHLOROTHIAZIDE 25 MG TABLET PO SCH (08:19)
[2023-04-16] MEDS: BACITRACIN 28 GM OINTMENT TP SCH ×2 (08:20→17:02)
[2023-04-16] MEDS: NICOTINE 14 MG/24 HOUR PATCH TD PRN (08:36)
[2023-04-16 08:44] VITALS: BP 150/90; PULSE 78; RESP 18; TEMP 98.1; O2SAT 97
[2023-04-17] MEDS: DIVALPROEX SODIUM 500 MG ER TABLET PO SCH ×2 (08:59→20:55)
[2023-04-17] MEDS: ATORVASTATIN CALCIUM 10 MG TABLET PO SCH (08:59)
[2023-04-17] MEDS: HYDROCHLOROTHIAZIDE 25 MG TABLET PO SCH (08:59)
[2023-04-17] MEDS: OLANZapine 10 MG TABLET PO SCH ×2 (08:59→20:55)
[2023-04-17] MEDS: AmLODIPine BESYLATE 2.5 MG TABLET PO SCH (08:59)
[2023-04-17 09:03] VITALS: BP 146/77; PULSE 86; RESP 18; TEMP 97.6; O2SAT 98
[2023-04-17] MEDS: NICOTINE 14 MG/24 HOUR PATCH TD PRN (09:03)
[2023-04-17] MEDS: MULTIVITAMINS, THERAPEUTIC TABLET PO SCH (09:05)
[2023-04-17] MEDS: BACITRACIN 28 GM OINTMENT TP SCH ×2 (12:27→17:45)
[2023-04-17 20:48] VITALS: BP 115/67; PULSE 78; RESP 18; TEMP 98.1; O2SAT 96
[2023-04-18] MEDS: HYDROCHLOROTHIAZIDE 25 MG TABLET PO SCH (08:13)
[2023-04-18] MEDS: DIVALPROEX SODIUM 500 MG ER TABLET PO SCH ×2 (08:13→20:22)
[2023-04-18] MEDS: AmLODIPine BESYLATE 2.5 MG TABLET PO SCH (08:13)
[2023-04-18] MEDS: OLANZapine 10 MG TABLET PO SCH ×2 (08:14→20:21)
[2023-04-18] MEDS: MULTIVITAMINS, THERAPEUTIC TABLET PO SCH (08:14)
[2023-04-18] MEDS: ATORVASTATIN CALCIUM 10 MG TABLET PO SCH (08:14)
[2023-04-18 08:44] VITALS: BP 151/96; PULSE 89; RESP 18; TEMP 97.8; O2SAT 98
[2023-04-18] MEDS: BACITRACIN 28 GM OINTMENT TP SCH ×2 (10:05→17:10)
[2023-04-18] MEDS: NICOTINE 14 MG/24 HOUR PATCH TD PRN (10:06)
[2023-04-18 20:25] VITALS: BP 132/82; PULSE 86; RESP 18; TEMP 98.1; O2SAT 97
[2023-04-19 08:00] VITALS: BP 150/90; PULSE 86; RESP 18; TEMP 97.9; O2SAT 97
[2023-04-19] MEDS: AmLODIPine BESYLATE 2.5 MG TABLET PO SCH (08:15)
[2023-04-19] MEDS: HYDROCHLOROTHIAZIDE 25 MG TABLET PO SCH (08:15)
[2023-04-19] MEDS: OLANZapine 10 MG TABLET PO SCH ×2 (08:15→20:50)
[2023-04-19] MEDS: DIVALPROEX SODIUM 500 MG ER TABLET PO SCH ×2 (08:15→20:50)
[2023-04-19] MEDS: ATORVASTATIN CALCIUM 10 MG TABLET PO SCH (08:16)
[2023-04-19] MEDS: MULTIVITAMINS, THERAPEUTIC TABLET PO SCH (08:16)
[2023-04-19] MEDS: NICOTINE 14 MG/24 HOUR PATCH TD PRN (08:20)
[2023-04-19] MEDS: BACITRACIN 28 GM OINTMENT TP SCH ×2 (08:21→17:24)
[2023-04-19] MEDS ORDERED: TUBERCULIN, PURIFIED PROTEIN DERIVATIVE 5 TU/0.1 ML SYRINGE ID ONE (15:15)
[2023-04-19 20:23] VITALS: RESP 18
[2023-04-19] MEDS: ZOLPIDEM TARTRATE 10 MG TABLET PO PRN (20:51)
[2023-04-20] MEDS: OLANZapine 10 MG TABLET PO SCH ×2 (08:22→20:49)
[2023-04-20] MEDS: BACITRACIN 28 GM OINTMENT TP SCH ×2 (08:22→16:26)
[2023-04-20] MEDS: DIVALPROEX SODIUM 500 MG ER TABLET PO SCH ×2 (08:22→20:49)
[2023-04-20] MEDS: AmLODIPine BESYLATE 2.5 MG TABLET PO SCH (08:22)
[2023-04-20] MEDS: HYDROCHLOROTHIAZIDE 25 MG TABLET PO SCH (08:22)
[2023-04-20] MEDS: ATORVASTATIN CALCIUM 10 MG TABLET PO SCH (08:22)
[2023-04-20 08:28] VITALS: BP 135/86; PULSE 72; RESP 18; TEMP 97.6; O2SAT 97
[2023-04-20] MEDS: MULTIVITAMINS, THERAPEUTIC TABLET PO SCH (08:36)
[2023-04-20] MEDS: NICOTINE 14 MG/24 HOUR PATCH TD PRN (08:37)
[2023-04-20] MEDS: ZOLPIDEM TARTRATE 10 MG TABLET PO PRN (20:49)
[2023-04-20 21:25] VITALS: BP 125/76; PULSE 85; RESP 18; TEMP 97.8; O2SAT 98
[2023-04-21] MEDS: AmLODIPine BESYLATE 2.5 MG TABLET PO SCH (07:59)
[2023-04-21] MEDS: ATORVASTATIN CALCIUM 10 MG TABLET PO SCH (07:59)
[2023-04-21] MEDS: BACITRACIN 28 GM OINTMENT TP SCH ×2 (07:59→16:05)
[2023-04-21] MEDS: MULTIVITAMINS, THERAPEUTIC TABLET PO SCH (07:59)
[2023-04-21] MEDS: HYDROCHLOROTHIAZIDE 25 MG TABLET PO SCH (07:59)
[2023-04-21] MEDS: DIVALPROEX SODIUM 500 MG ER TABLET PO SCH ×3 (07:59→22:14)
[2023-04-21] MEDS: OLANZapine 10 MG TABLET PO SCH ×3 (07:59→22:13)
[2023-04-21] MEDS: NICOTINE 14 MG/24 HOUR PATCH TD PRN (08:31)
[2023-04-21 08:37] VITALS: BP 163/98; PULSE 105; RESP 17; TEMP 97.7; O2SAT 98
[2023-04-22 06:45] VITALS: BP 128/79; PULSE 83; RESP 18; TEMP 97; O2SAT 97
[2023-04-22] MEDS: DIVALPROEX SODIUM 500 MG ER TABLET PO SCH ×2 (08:16→20:56)
[2023-04-22] MEDS: ATORVASTATIN CALCIUM 10 MG TABLET PO SCH (08:16)
[2023-04-22] MEDS: AmLODIPine BESYLATE 2.5 MG TABLET PO SCH (08:18)
[2023-04-22] MEDS: HYDROCHLOROTHIAZIDE 25 MG TABLET PO SCH (08:18)
[2023-04-22] MEDS: OLANZapine 10 MG TABLET PO SCH ×2 (08:18→20:57)
[2023-04-22] MEDS: MULTIVITAMINS, THERAPEUTIC TABLET PO SCH (08:18)
[2023-04-22] MEDS: BACITRACIN 28 GM OINTMENT TP SCH ×2 (08:20→16:16)
[2023-04-22] MEDS: NICOTINE 14 MG/24 HOUR PATCH TD PRN (08:33)
[2023-04-22 09:26] VITALS: BP 140/90; PULSE 79; RESP 18; TEMP 97.9; O2SAT 97
[2023-04-22] MEDS: ZOLPIDEM TARTRATE 10 MG TABLET PO PRN (20:57)
[2023-04-22 22:25] VITALS: RESP 18
[2023-04-23] MEDS: ATORVASTATIN CALCIUM 10 MG TABLET PO SCH (07:56)
[2023-04-23] MEDS: MULTIVITAMINS, THERAPEUTIC TABLET PO SCH (07:57)
[2023-04-23] MEDS: OLANZapine 10 MG TABLET PO SCH ×2 (07:57→20:25)
[2023-04-23] MEDS: DIVALPROEX SODIUM 500 MG ER TABLET PO SCH ×2 (07:58→20:25)
[2023-04-23] MEDS: HYDROCHLOROTHIAZIDE 25 MG TABLET PO SCH (07:58)
[2023-04-23] MEDS: AmLODIPine BESYLATE 2.5 MG TABLET PO SCH (07:58)
[2023-04-23] MEDS: BACITRACIN 28 GM OINTMENT TP SCH ×2 (08:00→17:02)
[2023-04-23 08:22] VITALS: BP 137/80; PULSE 91; RESP 17; TEMP 97.1; O2SAT 96
[2023-04-23] MEDS: NICOTINE 14 MG/24 HOUR PATCH TD PRN (10:47)
[2023-04-23 20:35] VITALS: BP 146/84; PULSE 83; RESP 18; TEMP 98.1; O2SAT 95
[2023-04-24] MEDS: DIVALPROEX SODIUM 500 MG ER TABLET PO SCH ×2 (08:09→20:19)
[2023-04-24] MEDS: MULTIVITAMINS, THERAPEUTIC TABLET PO SCH (08:09)
[2023-04-24] MEDS: AmLODIPine BESYLATE 2.5 MG TABLET PO SCH (08:09)
[2023-04-24] MEDS: HYDROCHLOROTHIAZIDE 25 MG TABLET PO SCH (08:10)
[2023-04-24] MEDS: OLANZapine 10 MG TABLET PO SCH ×2 (08:10→20:19)
[2023-04-24] MEDS: ATORVASTATIN CALCIUM 10 MG TABLET PO SCH (08:10)
[2023-04-24] MEDS: BACITRACIN 28 GM OINTMENT TP SCH ×2 (08:11→16:08)
[2023-04-24 08:35] VITALS: BP 157/85; PULSE 81; RESP 18; TEMP 98
[2023-04-24 21:24] VITALS: RESP 18
[2023-04-25] MEDS: MULTIVITAMINS, THERAPEUTIC TABLET PO SCH (08:07)
[2023-04-25] MEDS: OLANZapine 10 MG TABLET PO SCH ×2 (08:08→20:32)
[2023-04-25] MEDS: AmLODIPine BESYLATE 2.5 MG TABLET PO SCH (08:08)
[2023-04-25] MEDS: HYDROCHLOROTHIAZIDE 25 MG TABLET PO SCH (08:08)
[2023-04-25] MEDS: DIVALPROEX SODIUM 500 MG ER TABLET PO SCH ×2 (08:08→20:32)
[2023-04-25] MEDS: BACITRACIN 28 GM OINTMENT TP SCH ×2 (08:09→17:09)
[2023-04-25] MEDS: ATORVASTATIN CALCIUM 10 MG TABLET PO SCH (08:09)
[2023-04-25 08:40] VITALS: BP 124/76; PULSE 93; RESP 19; TEMP 97.6; O2SAT 96
[2023-04-25] MEDS: NICOTINE 14 MG/24 HOUR PATCH TD PRN (10:14)
[2023-04-25 20:44] VITALS: BP 125/80; PULSE 90; RESP 18; TEMP 97.6; O2SAT 97
[2023-04-26 08:44] VITALS: BP 141/86; PULSE 98; RESP 17; TEMP 97.9; O2SAT 98
[2023-04-26] MEDS: LORazepam 2 MG TABLET PO PRN (08:49)
[2023-04-26] MEDS: OLANZapine 10 MG TABLET PO SCH ×2 (08:50→20:31)
[2023-04-26] MEDS: HYDROCHLOROTHIAZIDE 25 MG TABLET PO SCH (08:50)
[2023-04-26] MEDS: MULTIVITAMINS, THERAPEUTIC TABLET PO SCH (08:50)
[2023-04-26] MEDS: AmLODIPine BESYLATE 2.5 MG TABLET PO SCH (08:50)
[2023-04-26] MEDS: DIVALPROEX SODIUM 500 MG ER TABLET PO SCH ×2 (08:51→20:31)
[2023-04-26] MEDS: BACITRACIN 28 GM OINTMENT TP SCH ×2 (08:51→16:52)
[2023-04-26] MEDS: ATORVASTATIN CALCIUM 10 MG TABLET PO SCH (08:51)
[2023-04-26] MEDS: NICOTINE 14 MG/24 HOUR PATCH TD PRN (08:55)
[2023-04-26 21:24] VITALS: RESP 18
[2023-04-27] MEDS: ATORVASTATIN CALCIUM 10 MG TABLET PO SCH (08:47)
[2023-04-27] MEDS: MULTIVITAMINS, THERAPEUTIC TABLET PO SCH (08:47)
[2023-04-27] MEDS: BACITRACIN 28 GM OINTMENT TP SCH ×2 (08:47→17:15)
[2023-04-27] MEDS: DIVALPROEX SODIUM 500 MG ER TABLET PO SCH ×2 (08:47→20:38)
[2023-04-27] MEDS: AmLODIPine BESYLATE 2.5 MG TABLET PO SCH (08:47)
[2023-04-27] MEDS: HYDROCHLOROTHIAZIDE 25 MG TABLET PO SCH (08:47)
[2023-04-27] MEDS: OLANZapine 10 MG TABLET PO SCH ×2 (08:47→20:38)
[2023-04-27] MEDS: NICOTINE 14 MG/24 HOUR PATCH TD PRN (08:49)
[2023-04-27] MEDS: LORazepam 2 MG TABLET PO PRN (08:51)
[2023-04-27 09:11] VITALS: BP 115/80; PULSE 94; RESP 18; TEMP 98; O2SAT 98
[2023-04-27 20:10] VITALS: BP 138/72; PULSE 76; RESP 18; TEMP 98.3; O2SAT 97
[2023-04-28] MEDS: AmLODIPine BESYLATE 2.5 MG TABLET PO SCH (08:28)
[2023-04-28] MEDS: MULTIVITAMINS, THERAPEUTIC TABLET PO SCH (08:29)
[2023-04-28] MEDS: OLANZapine 10 MG TABLET PO SCH ×2 (08:29→20:32)
[2023-04-28] MEDS: HYDROCHLOROTHIAZIDE 25 MG TABLET PO SCH (08:29)
[2023-04-28] MEDS: BACITRACIN 28 GM OINTMENT TP SCH ×2 (08:29→17:05)
[2023-04-28] MEDS: DIVALPROEX SODIUM 500 MG ER TABLET PO SCH ×2 (08:29→20:32)
[2023-04-28] MEDS: ATORVASTATIN CALCIUM 10 MG TABLET PO SCH (08:29)
[2023-04-28] MEDS: LORazepam 2 MG TABLET PO PRN (08:30)
[2023-04-28 09:02] VITALS: BP 120/96; PULSE 88; RESP 18; TEMP 98; O2SAT 96
[2023-04-28] MEDS: NICOTINE 14 MG/24 HOUR PATCH TD PRN (09:24)
[2023-04-28 22:16] VITALS: BP 148/90; PULSE 97; RESP 20; TEMP 97.9
[2023-04-29] MEDS: ATORVASTATIN CALCIUM 10 MG TABLET PO SCH (07:51)
[2023-04-29] MEDS: BACITRACIN 28 GM OINTMENT TP SCH ×2 (07:51→17:00)
[2023-04-29] MEDS: AmLODIPine BESYLATE 2.5 MG TABLET PO SCH (07:54)
[2023-04-29] MEDS: HYDROCHLOROTHIAZIDE 25 MG TABLET PO SCH (07:54)
[2023-04-29] MEDS: MULTIVITAMINS, THERAPEUTIC TABLET PO SCH (07:54)
[2023-04-29] MEDS: OLANZapine 10 MG TABLET PO SCH ×2 (07:54→21:13)
[2023-04-29] MEDS: DIVALPROEX SODIUM 500 MG ER TABLET PO SCH ×2 (07:54→21:13)
[2023-04-29 08:30] VITALS: BP 153/94; PULSE 71; RESP 18; TEMP 97.5; O2SAT 98
[2023-04-29] MEDS: NICOTINE 14 MG/24 HOUR PATCH TD PRN (09:14)
[2023-04-29] MEDS: LORazepam 2 MG TABLET PO PRN (19:30)
[2023-04-29 20:43] VITALS: RESP 18
[2023-04-29] MEDS: ZOLPIDEM TARTRATE 10 MG TABLET PO PRN (21:13)
[2023-04-30] MEDS: BACITRACIN 28 GM OINTMENT TP SCH ×2 (09:21→17:03)
[2023-04-30] MEDS: AmLODIPine BESYLATE 2.5 MG TABLET PO SCH (09:21)
[2023-04-30] MEDS: DIVALPROEX SODIUM 500 MG ER TABLET PO SCH ×2 (09:21→20:17)
[2023-04-30] MEDS: HYDROCHLOROTHIAZIDE 25 MG TABLET PO SCH (09:21)
[2023-04-30] MEDS: OLANZapine 10 MG TABLET PO SCH ×2 (09:21→20:17)
[2023-04-30] MEDS: ATORVASTATIN CALCIUM 10 MG TABLET PO SCH (09:21)
[2023-04-30] MEDS: MULTIVITAMINS, THERAPEUTIC TABLET PO SCH (09:21)
[2023-04-30] MEDS: LORazepam 2 MG TABLET PO PRN ×2 (09:23→19:26)
[2023-04-30 12:42] VITALS: BP 140/99; PULSE 80; RESP 17; TEMP 98; O2SAT 97
[2023-04-30] MEDS: ZOLPIDEM TARTRATE 10 MG TABLET PO PRN (21:34)
[2023-05-01] MEDS: MULTIVITAMINS, THERAPEUTIC TABLET PO SCH (08:52)
[2023-05-01] MEDS: HYDROCHLOROTHIAZIDE 25 MG TABLET PO SCH (08:52)
[2023-05-01] MEDS: AmLODIPine BESYLATE 2.5 MG TABLET PO SCH (08:52)
[2023-05-01] MEDS: DIVALPROEX SODIUM 500 MG ER TABLET PO SCH ×2 (08:52→20:30)
[2023-05-01] MEDS: OLANZapine 10 MG TABLET PO SCH ×2 (08:52→20:30)
[2023-05-01] MEDS: ATORVASTATIN CALCIUM 10 MG TABLET PO SCH (08:52)
[2023-05-01] MEDS: LORazepam 2 MG TABLET PO PRN (08:54)
[2023-05-01 08:56] VITALS: BP 117/76; PULSE 76; RESP 18; TEMP 97.7; O2SAT 97
[2023-05-01] MEDS: BACITRACIN 28 GM OINTMENT TP SCH ×2 (09:04→17:09)
[2023-05-01] MEDS: NICOTINE 14 MG/24 HOUR PATCH TD PRN (16:36)
[2023-05-01 20:59] VITALS: BP 154/86; PULSE 98; RESP 19; TEMP 97.8; O2SAT 95
[2023-05-02 08:10] VITALS: BP 123/59; PULSE 99; RESP 18; TEMP 97.6; O2SAT 97
[2023-05-02] MEDS: OLANZapine 10 MG TABLET PO SCH ×2 (08:44→20:08)
[2023-05-02] MEDS: AmLODIPine BESYLATE 2.5 MG TABLET PO SCH (08:44)
[2023-05-02] MEDS: DIVALPROEX SODIUM 500 MG ER TABLET PO SCH ×2 (08:44→20:08)
[2023-05-02] MEDS: MULTIVITAMINS, THERAPEUTIC TABLET PO SCH (08:44)
[2023-05-02] MEDS: HYDROCHLOROTHIAZIDE 25 MG TABLET PO SCH (08:44)
[2023-05-02] MEDS: ATORVASTATIN CALCIUM 10 MG TABLET PO SCH (08:44)
[2023-05-02] MEDS: NICOTINE 14 MG/24 HOUR PATCH TD PRN (08:50)
[2023-05-02] MEDS: BACITRACIN 28 GM OINTMENT TP SCH ×2 (10:47→16:14)
[2023-05-03 08:10] VITALS: BP 113/72; PULSE 83; RESP 17; TEMP 97.6; O2SAT 96
[2023-05-03] MEDS: MULTIVITAMINS, THERAPEUTIC TABLET PO SCH (08:36)
[2023-05-03] MEDS: DIVALPROEX SODIUM 500 MG ER TABLET PO SCH (08:36)
[2023-05-03] MEDS: OLANZapine 10 MG TABLET PO SCH (08:37)
[2023-05-03] MEDS: HYDROCHLOROTHIAZIDE 25 MG TABLET PO SCH (08:37)
[2023-05-03] MEDS: BACITRACIN 28 GM OINTMENT TP SCH (08:37)
[2023-05-03] MEDS: AmLODIPine BESYLATE 2.5 MG TABLET PO SCH (08:37)
[2023-05-03] MEDS: ATORVASTATIN CALCIUM 10 MG TABLET PO SCH (08:40)
[2023-05-03] MEDS: NICOTINE 14 MG/24 HOUR PATCH TD PRN (09:20)
[2023-05-03] MEDS ORDERED: DIVA500T53 PO (11:39)
[2023-05-03] MEDS ORDERED: OLAN10TA74 PO (11:39)
[2023-05-03] MEDS ORDERED: DIVA500T69 PO (11:39)
[2023-05-03 14:33] LABS: COVID AG,FIA SOURCE NASAL SWAB
== END 2023-05-03 15:50 | disposition home or self-care (01) | DRG 885 ==
LOC: EMS 12:34 → 3EC 03-15 00:57
PROVIDERS: ADMIT Psychiatry & Neurology Psychiatry; ATTEND Psychiatry & Neurology Psychiatry
DX: F20.0 Paranoid schizophrenia (principal); E11.9 Type 2 diabetes mellitus without complications; E66.01 Morbid (severe) obesity due to excess calories; E78.5 Hyperlipidemia, unspecified; I10 Essential (primary) hypertension; I87.2 Venous insufficiency (chronic) (peripheral); I87.8 Other specified disorders of veins; F94.0 Selective mutism; Z20.822 Contact with and (suspected) exposure to COVID-19; Z59.00 Homelessness unspecified; Z79.899 Other long term (current) drug therapy; Z88.8 Allergy status to other drugs, medicaments and biological substances; Z68.36 Body mass index [BMI] 36.0-36.9, adult
CPT/HCPCS: 80053; 80061; 80164; 80307; 81003; 83036; 84443; 85025; 87081; 99285; G0480